=== PATIENT | female | born 1950 | race Caucasian/White ===

== ENCOUNTER → 2024-09-14 | Outpatient (CLI) | payer MEDICARE, SELFPAY ==
--- NOTE | 2024-09-14 18:00 | CT_ITS ---
PROCEDURE: CT ABD/PELVIS W/WO CONTRAST 09/15/2024 REASON FOR EXAM: ASYMPTOMATIC MICROSCOPIC HEMATURIA TECHNIQUE: Abdomen and pelvis CT with intravenous contrast. Coronal and Sagittal reconstruction series were provided. One or more dose reduction techniques were used (e.g., Automated exposure control, adjustment of the mA and/or kV according to patient size, use of iterative reconstruction technique. RADIATION DOSE SUMMARY: CTDlvol: mGy DLP: mGycm COMPARISON: None FINDINGS: Average sized liver showing homogenous parenchymal attenuation. No dilated intra or extra-hepatic biliary tracts. Gall bladder showing no radiodense calculi. No abnormal mural thickening. Clear surrounding fat planes with no sizeable collections. Normal appearance of the pancreas with clear surrounding fat planes. The spleen, adrenal glands and IVC are unremarkable. Aortoiliac atheromatous calcifications. Both kidneys are of average size and showing smooth outline with preserved parenchymal thickness. No renal calculi. No hydronephrosis. Right renal hypodense cortical cyst. Prominent vascular collaterals seen surrounding the right renal pelvis and upper ureter. No hydroureter. Under distension of the urinary bladder showing uniform mural thickening with no obvious masses. No obvious masses related to the pelvic viscera. The appendix appears unremarkable. No right iliac inflammatory changes. The examined ascending colon, the transverse colon, the descending colon & small bowel loops are unremarkable. Small hiatus hernia. Mild gastric wall thickening. No ascites or free air. No obvious pathologically enlarged lymph nodes. Scanned osseous structures show no osseous destruction. Thoracolumbar spondylosis. Scanned lung bases show basal atelectatic changes. CT/CT Abd/Pelvis W/WO Contrast IMPRESSION: No renal calculi. No hydronephrosis. Prominent vascular collaterals seen surrounding the right renal pelvis and uppe r ureter. No hydroureter. Urinary bladder mild mural thickening. Advise clinical and laboratory correlati on to exclude the possibility of cystitis. Otherwise, no acute pelvi-abdominal abnormalities, collections or free air. OVERALL FINAL ASSESSMENT: . LI-RADS is not meant to be used in patients <18 years or patients with cirrhosi s due to congenital hepatic fibrosis or due to vascular disorders, because these patients have a lower chance of developing HC C. Reading [facility]
== END | disposition home or self-care (01) ==
LOC: CT 17:41
PROVIDERS: PCP Family Medicine; Referring Provider Urology; Visit Provider Urology
DX: R31.21 Asymptomatic microscopic hematuria (principal)
CPT/HCPCS: 74178; Q9967